=== PATIENT | female | born 1975 | race Caucasian/White ===

== ENCOUNTER 2019-01-02 16:24 | Emergency (ER) | payer MEDICAID ==
[~2019-01-02] VITALS: Ht 162.6 cm; Wt 72.6 kg
--- NOTE | 2019-01-02 16:30 | NUR ---
Pt came into ED for chest pain x2 hrs. She stated she was also feeling palpitations. States her pain is 6/10. patient states she had N/V/D for 2 hrs. Pt is A&Ox4. She states she has had a hx of chest pain but the results were inconclusive. Will continue to monitor. Addendum: 01/02/19 at 1643 by [facility] PT also has SOB.
--- NOTE | 2019-01-02 16:31 | NUR ---
Patient to ER bed 06 to gown for evaluation. Side rails up.
[2019-01-02 16:32] VITALS: BP_SYST 147
--- NOTE | 2019-01-02 16:45 | NUR ---
ER Dr. Smith at bedside examining patient.
[2019-01-02] MEDS ORDERED: ASPIRIN 81 MG TAB.CHEW PO ONE (17:00)
[2019-01-02 17:03] LABS: HEMATOCRIT 33.4 % (36-48); PLATELET COUNT (AUTO) 290 K/uL (130-430)
[2019-01-02 17:08] LABS: CALCIUM 8.8 mg/dL (8.4-11.0); CREATININE 0.7 mg/dL (0.55-1.30); HEMOGLOBIN 10.7 g/dL (12.0-16.0); MEAN CORPUSCULAR HEMOGLOBIN 25 pg (27-31); MEAN CORPUSCULAR HGB CONC 32 % (32-36); MEAN CORPUSCULAR VOLUME 77 fL (79.0-98.0); POTASSIUM 3.7 mmol/L (3.5-5.1); RED BLOOD CELL COUNT(AUTO) 4.35 MIL/uL (4.2-6.2); RED CELL DISTRIBUTION WIDTH 28.8 % (9.0-15.0)
[2019-01-02 17:12] LABS: PROTHROMBIN TIME 10.2 SECS (9.5-12.5)
[2019-01-02 17:13] LABS: TOTAL BILIRUBIN 0.5 mg/dL (0.0-1.0)
[2019-01-02 17:32] LABS: ATYPICAL LYMPHOCYTES % 0 % (0-0); BAND % (MANUAL) 2 % (0-6); BASOPHILS % (MANUAL) 0 % (0-2); EOSINOPHILS % (MANUAL) 2 % (0-7); LYMPHOCYTES % (MANUAL) 28 % (20-46); MONOCYTES % (MANUAL) 3 % (0-11)
[2019-01-02 17:38] LABS: CKMB RELATIVE INDEX 0.7 (0.0-2.9); CREATINE KINASE MB 6.3 ng/mL (0-3.6)
--- NOTE | 2019-01-02 18:00 | NUR ---
Patient walked out of ED and followed with charge nurse, VICKIE Menendez. Informed patient that she needs to return to ED to remove IV access. Patient reports that she will be right back. Patient walks to her vehicle a white [employer] plate number [id number] and drives off. PD will be called.
--- NOTE | 2019-01-02 18:04 | NUR ---
[facility] called [phone]. informed Traffic Officer [place] that patient left ED with IV angiocath in her arm. [place] states that they cannot do anything about it. Charge nurse notified.
--- NOTE | 2019-01-02 18:11 | NUR ---
Ana JAMES called at spoke to [place]. They will send officer to home address. Charge nurse and director notified.
--- NOTE | 2019-01-02 18:14 | NUR ---
Person to notify and next of kin contacted. Numbers are disconnected.
--- NOTE | 2019-01-02 18:20 | NUR ---
CALLED PT AT AND LEFT MESSAGE.
--- NOTE | 2019-01-02 18:22 | NUR ---
SPOKE WITH MOTHER ORQUIDEA ARNOLD AT [phone] AND EXPLAINED THAT SHE NEEDS TO RETURN TO ER FOR IV HEPLOCK REMOVAL. MOTHER STATES THAT PT WAS GIVING HER AN ATTITUDE SO SHE DECIDED TO LEAVE, STATES SHE WILL BRING THE PT BACK. STATES THAT SHE THINKS THE PT TOOK IV HEPLOCK OUT ALREADY, TOLD MOTHER WE NEED VERIFICATION. EXPLAINED THAT POLICE HAVE BEEN CALLED
--- NOTE | 2019-01-02 18:42 | NUR ---
Patient returned to ED. IV heplock removed. Bleeding controlled. ID wrist band removed.
== END 2019-01-02 18:00 | disposition left against medical advice (07) ==
LOC: SED 16:24
DX: R07.89 Other chest pain (principal); R03.0 Elevated blood-pressure reading, without diagnosis of hypertension; Z87.891 Personal history of nicotine dependence
CPT/HCPCS: 36415; 71045; 80053; 82550-TC; 82553-TC; 84484; 85007; 85027; 85379; 85610-TC; 85730-TC; 93005; 99284

== ENCOUNTER 2019-03-07 00:56 | Emergency (ER) | payer SELFPAY ==
[~2019-03-07] VITALS: Ht 170.2 cm; Wt 81.6 kg
[2019-03-07 01:00] VITALS: BP_SYST 156
--- NOTE | 2019-03-07 01:05 | NUR ---
Placed in room 8 . Placed on panel monitor, blood pressure machine and pulse oximeter. To gown for exam. Side rails up. Report given to Marge JOHNSTON.
--- NOTE | 2019-03-07 01:06 | NUR ---
12-lead EKG done in bed [address] Bell for interpretation.
--- NOTE | 2019-03-07 01:07 | NUR ---
Pt c/o of midsternal chest pain which started at 2100 while sitting at home. Reports she cannot describe the pain. Reports she drank a lot of alcohol and was brought into thE ED by her mother. Denies drug use. Reports some dysuria. Denies n/v/d or fever. No other complaints/injuries noted. Will cont. to monitor.
--- NOTE | 2019-03-07 01:10 | NUR ---
ER at bedside examining patient.
[2019-03-07] MEDS ORDERED: NACL 0.9% 1,000 ML IV ONE (01:30)
[2019-03-07] MEDS ORDERED: KETOROLAC TROMETHAMINE 30 MG VIAL IVP ONE (01:30)
--- NOTE | 2019-03-07 01:46 | NUR ---
Portable X Ray bedside, well tolerated
[2019-03-07 02:00] LABS: BARBITURATE, URINE NEGATIVE (NEG <=200); BENZODIAZEPINE, URINE POSITIVE (NEG <=150); CANNABINOID, URINE NEGATIVE (NEG <=50); COCAINE, URINE NEGATIVE (NEG <=150); METHAMPHETAMINES SCREEN,URINE NEGATIVE (NEG <=500); OPIATE, URINE NEGATIVE (NEG <=100); PHENCYCLIDINE SCREEN,URINE NEGATIVE (NEG <=25); UR TRICYCLIC ANTIDEPRESSANTS NEGATIVE (NEG <=300); URINE AMPHETAMINE NEGATIVE (NEG <=500); URINE METHADONE NEGATIVE (NEG <=200); URINE OXYCODONE SCREEN NEGATIVE (NEG <=100); URINE PROPOXYPHENE SCREEN NEGATIVE (NEG <=300)
--- NOTE | 2019-03-07 02:00 | NUR ---
PT resting comfortably in bed, no signs of acute distress.
[2019-03-07 02:16] LABS: HEMOGLOBIN 10.3 g/dL (12.0-16.0); MEAN CORPUSCULAR HEMOGLOBIN 26 pg (27-31); WHITE BLOOD COUNT (AUTO) 5.8 K/uL (4.8-10.8)
[2019-03-07 02:29] LABS: HEMATOCRIT 31.7 % (36-48); MEAN CORPUSCULAR HGB CONC 33 % (32-36); MEAN CORPUSCULAR VOLUME 81 fL (79.0-98.0); PLATELET COUNT (AUTO) 253 K/uL (130-430); RED BLOOD CELL COUNT(AUTO) 3.93 MIL/uL (4.2-6.2); RED CELL DISTRIBUTION WIDTH 31.9 % (9.0-15.0)
[2019-03-07 02:34] LABS: CALCIUM 8.8 mg/dL (8.4-11.0); CREATININE 0.75 mg/dL (0.55-1.30); POTASSIUM 3.9 mmol/L (3.5-5.1)
[2019-03-07 02:39] LABS: ALBUMIN 3.6 g/dL (3.4-4.8); TOTAL BILIRUBIN 0.2 mg/dL (0.0-1.0)
--- NOTE | 2019-03-07 03:00 | NUR ---
PT resting comfortably in bed, no signs of acute distress.
--- NOTE | 2019-03-07 04:00 | NUR ---
Pt removed IV. Bleeding controlled. Pt educated to stop, however, pt continued to pull out IV. ER made aware.
--- NOTE | 2019-03-07 04:10 | NUR ---
ER MD Dr. Bell medically cleared pt to go if pt is supervised at has a ride.
[2019-03-07 04:24] VITALS: BP_SYST 112
--- NOTE | 2019-03-07 04:24 | NUR ---
Patient given written and verbal discharge instructions and verbalizes understanding. ER MD Dr. Bell discussed with patient the results and treatment provided. Patient in stable condition. ID arm band removed. Patient educated on pain management and to follow up with PMD. Pain Scale 0/10. Opportunity for questions provided and answered. Medication side effect fact sheet provided.
--- NOTE | 2019-03-07 04:24 | NUR ---
During discharge, pts mother was at bedside reviewing discharge instructions. Pt ambulated with steady gait out of ER in care of mother.
== END 2019-03-07 04:24 | disposition home or self-care (01) ==
LOC: SED 00:56
DX: R07.89 Other chest pain (principal); F10.129 Alcohol abuse with intoxication, unspecified
CPT/HCPCS: 36415; 71045; 80053; 80061; 80307; 81025; 82550; 83880; 84484; 85025; 93005; 96374; 99284; G0482; J1885; J7030

== ENCOUNTER 2024-03-05 19:30 | Inpatient (IN) | payer MEDICAID ==
[~2024-03-05] VITALS: Ht 170.2 cm; Wt 74.1 kg
[2024-03-05 19:35] VITALS: BP_SYST 118; PULSE 89; RESP 16; TEMP 98.1; O2SAT 96
[2024-03-05 20:42] LABS: BASOPHILS # (AUTO) 0.1 K/uL (0.0-0.2); BASOPHILS % (AUTO) 1.1 % (0.0-2.0); EOSINOPHILS # (AUTO) 0.1 K/uL (0.0-0.4); EOSINOPHILS % (AUTO) 1.7 % (0.0-4.0); LYMPHOCYTES % (AUTO) 37.1 % (20.5-51.5); MEAN CORPUSCULAR HEMOGLOBIN 32 pg (27-31); MEAN CORPUSCULAR HGB CONC 33 % (32-36); MEAN CORPUSCULAR VOLUME 95 fL (79.0-98.0); MONOCYTES # (AUTO) 0.5 K/uL (0.0-1.0); MONOCYTES % (AUTO) 8.8 % (1.7-9.3); NEUTROPHILS # (AUTO) 2.8 K/uL (1.8-7.7); NEUTROPHILS % (AUTO) 51.3 % (40.0-70.0); PLATELET COUNT (AUTO) 199 K/uL (130-430); RED BLOOD CELL COUNT(AUTO) 2.42 MIL/uL (4.2-6.2); RED CELL DISTRIBUTION WIDTH 30.9 % (9.0-15.0); WHITE BLOOD COUNT (AUTO) 5.4 K/uL (4.8-10.8)
[2024-03-05 20:43] LABS: HEMOGLOBIN 7.6 g/dL (12.0-16.0)
[2024-03-05 20:54] LABS: ANISOCYTOSIS 2+; OVALOCYTES FEW; TARGET CELLS FEW
[2024-03-05 20:56] LABS: INR 1.1 (0.8-1.2); PROTHROMBIN TIME 12.1 SECS (9.5-12.5)
[2024-03-05 20:59] LABS: ALANINE AMINOTRANSFERASE 47 U/L (12-78); ALBUMIN 1.8 g/dL (3.4-4.8); ALCOHOL, BLOOD 247 mg/dL (<10); ANION GAP 11 (5-15); ASPARTATE AMINOTRANSFERASE 108 U/L (10-37); BILIRUBIN,DIRECT 0.2 mg/dL (0.0-0.3); CALCIUM 7.1 mg/dL (8.4-11.0); CARBON DIOXIDE 26 mmol/L (23-29); CHLORIDE 107 mmol/L (98-107); CREATINE KINASE, TOTAL 68 U/L (26-192); CREATININE 0.74 mg/dL (0.55-1.30); GFR AFRICAN AMERICAN 107 mL/min (>90); GLUCOSE 96 mg/dL (74-106); SODIUM SERUM 144 mmol/L (136-145); TOTAL BILIRUBIN 0.3 mg/dL (0.0-1.0); TOTAL PROTEIN, SERUM 5.7 g/dL (6.4-8.3); UREA NITROGEN, BLOOD 5 mg/dL (8-21)
[2024-03-05 21:00] LABS: GFR NON AFRICAN-AMERICAN 89 mL/min (>90)
[2024-03-05 21:01] LABS: POTASSIUM 2.8 mmol/L (3.5-5.1)
[2024-03-05] MEDS: PANTOPRAZOLE SODIUM 40 MG/VIAL (PROTONIX) IVP ONE (23:37)
[2024-03-05] MEDS: POTASSIUM CHLORIDE 20 MEQ TABLET.ER PO ONE (23:37)
[2024-03-06 01:30] LABS: BILIRUBIN,URINE NEGATIVE (NEGATIVE); BLOOD, URINE NEGATIVE (NEGATIVE); CLARITY/URINE CLEAR (CLEAR); COLOR,URINE YELLOW (YELLOW); GLUCOSE,URINE NEGATIVE (NEGATIVE); KETONES,URINE NEGATIVE (NEGATIVE); LEUKOCYTE ESTERASE ,URINE TRACE (NEGATIVE); NITRITE, URINE NEGATIVE (NEGATIVE); PROTEIN URINE NEGATIVE (NEGATIVE); UROBILINOGEN,URINE 0.2 (0.2-1.0)
[2024-03-06 01:45] LABS: BARBITURATE, URINE NEGATIVE (NEG <=200); BENZODIAZEPINE, URINE NEGATIVE (NEG <=150); CANNABINOID, URINE NEGATIVE (NEG <=50); COCAINE, URINE NEGATIVE (NEG <=150); METHAMPHETAMINES SCREEN,URINE NEGATIVE (NEG <=500); OPIATE, URINE NEGATIVE (NEG <=100); PHENCYCLIDINE SCREEN,URINE NEGATIVE (NEG <=25); URINE AMPHETAMINE NEGATIVE (NEG <=500); URINE METHADONE NEGATIVE (NEG <=200); URINE OXYCODONE SCREEN NEGATIVE (NEG <=100)
[2024-03-06 01:46] LABS: UR TRICYCLIC ANTIDEPRESSANTS NEGATIVE (NEG <=300)
[2024-03-06 01:54] LABS: BACTERIA,URINE RARE /HPF (None Seen); RBC,URINE 0-3 /HPF (0-3)
[2024-03-06] MEDS ORDERED: THIAMINE HCL 200 MG/2 ML VIAL ONE (02:12)
[2024-03-06] MEDS ORDERED: FOLIC ACID 5 MG/ML VIAL IV ONE ×2 (02:12→02:28)
[2024-03-06] MEDS ORDERED: MAGNESIUM SULFATE 1 GM/2 ML VIAL ONE (02:12)
[2024-03-06] MEDS ORDERED: MVI 10 ML VIAL IV ONE (02:12)
[2024-03-06] MEDS: FOLIC ACID 1 MG, THIAMINE HCL 100 MG, MAGNESIUM SULFATE 1 GM, MVI 10 ML in NACL 0.9% 1,... IV ONE (02:34)
[2024-03-06 05:05] VITALS: BP_SYST 118; PULSE 85; RESP 18; TEMP 97.8
[2024-03-06 07:48] VITALS: BP_SYST 131; PULSE 73; RESP 16; TEMP 99; O2SAT 98
[2024-03-06 08:00] VITALS: O2SAT 99
[2024-03-06] MEDS: chlordiazePOXIDE HCL 25 MG CAPSULE PO SCH (08:30)
[2024-03-06] MEDS: PANTOPRAZOLE SODIUM 40 MG/VIAL (PROTONIX) IVP SCH (08:31)
[2024-03-06] MEDS: POTASSIUM CHLORIDE 20 MEQ/PKT PACKET PO SCH (08:31)
[2024-03-06 08:51] LABS: SERUM HCG (QUALITATIVE) NEGATIVE (NEGATIVE)
[2024-03-06 09:01] LABS: EOSINOPHILS # (AUTO) 0.1 K/uL (0.0-0.4); EOSINOPHILS % (AUTO) 1.3 % (0.0-4.0); HEMATOCRIT 23.8 % (36-48); HEMOGLOBIN 7.6 g/dL (12.0-16.0); LYMPHOCYTES # (AUTO) 1.2 K/uL (1.0-5.5); LYMPHOCYTES % (AUTO) 26.7 % (20.5-51.5); MEAN CORPUSCULAR HEMOGLOBIN 31 pg (27-31); MEAN CORPUSCULAR HGB CONC 32 % (32-36); MEAN CORPUSCULAR VOLUME 96 fL (79.0-98.0); MONOCYTES # (AUTO) 0.5 K/uL (0.0-1.0); MONOCYTES % (AUTO) 11.1 % (1.7-9.3); NEUTROPHILS # (AUTO) 2.6 K/uL (1.8-7.7); NEUTROPHILS % (AUTO) 59.9 % (40.0-70.0); PLATELET COUNT (AUTO) 209 K/uL (130-430); RED BLOOD CELL COUNT(AUTO) 2.48 MIL/uL (4.2-6.2); WHITE BLOOD COUNT (AUTO) 4.4 K/uL (4.8-10.8)
[2024-03-06 09:11] LABS: ALBUMIN 1.6 g/dL (3.4-4.8); CALCIUM 7.2 mg/dL (8.4-11.0); CREATININE 0.61 mg/dL (0.55-1.30); POTASSIUM 3.5 mmol/L (3.5-5.1); TOTAL BILIRUBIN 0.5 mg/dL (0.0-1.0); TOTAL PROTEIN, SERUM 5.4 g/dL (6.4-8.3)
[2024-03-06 10:39] LABS: TOTAL IRON BIND. CAPACITY 302 ug/dL (250-450)
[2024-03-06] MEDS ORDERED: NALOXONE HCL 0.4 MG/ML AMP (NARCAN) IVP PRN ×2 (11:00)
[2024-03-06 11:11] VITALS: BP_SYST 117; PULSE 89; RESP 16; TEMP 97; O2SAT 100
[2024-03-06] MEDS: HYDROcodone/ACETAMIN 5-325 MG TAB (NORCO/ VICODIN) PO ONE (11:42)
[2024-03-06] MEDS: SOD FERRIC GLUC COMPLEX/SUC 125 MG in NS 100 ML IV SCH (14:50)
[2024-03-06 15:18] VITALS: BP_SYST 124; PULSE 85; RESP 16; TEMP 97; O2SAT 98
[2024-03-06] MEDS: DIPHENHYDRAMINE HCL 50 MG CAPSULE PO PRN (16:13)
[2024-03-06] MEDS: ALPRAZolam 0.25 MG TABLET PO PRN (16:13)
[2024-03-06] MEDS: BISACODYL 5 MG TABLET.DR (DULCOLAX) PO ONE (17:57)
[2024-03-06] MEDS: HYDROcodone/ACETAMIN 5-325 MG TAB (NORCO/ VICODIN) PO PRN (17:58)
[2024-03-06] MEDS: GOLYTELY / COLYTE SOLUTION 4 LITERS PO ONE (17:58)
[2024-03-06 20:08] VITALS: BP_SYST 134; PULSE 85; RESP 16; TEMP 97.8; O2SAT 100
[2024-03-06] MEDS: CLOTRIMAZOLE/BETAMET DIPROP 15 GM TUBE TP SCH (21:36)
[2024-03-06] MEDS: MULTIVITAMINS TAB 1 TABLET PO SCH (21:42)
[2024-03-07 00:24] VITALS: BP_SYST 114; PULSE 78; RESP 15; TEMP 96.8; O2SAT 95
[2024-03-07 04:00] VITALS: BP_SYST 114; PULSE 80; RESP 16; TEMP 97.7; O2SAT 99
[2024-03-07] MEDS: MIDAZOLAM HCL 5 MG/5 ML VIAL ONE (07:25)
[2024-03-07] MEDS: fentaNYL CITRATE/PF 100 MCG/2 ML AMP ONE (07:25)
[2024-03-07 07:29] LABS: EOSINOPHILS # (AUTO) 0.1 K/uL (0.0-0.4); EOSINOPHILS % (AUTO) 2.2 % (0.0-4.0); HEMATOCRIT 23.8 % (36-48); HEMOGLOBIN 7.6 g/dL (12.0-16.0); LYMPHOCYTES # (AUTO) 0.9 K/uL (1.0-5.5); LYMPHOCYTES % (AUTO) 24.3 % (20.5-51.5); MEAN CORPUSCULAR HEMOGLOBIN 31 pg (27-31); MEAN CORPUSCULAR HGB CONC 32 % (32-36); MEAN CORPUSCULAR VOLUME 98 fL (79.0-98.0); MONOCYTES # (AUTO) 0.5 K/uL (0.0-1.0); MONOCYTES % (AUTO) 12.6 % (1.7-9.3); NEUTROPHILS # (AUTO) 2.3 K/uL (1.8-7.7); NEUTROPHILS % (AUTO) 59.9 % (40.0-70.0); PLATELET COUNT (AUTO) 193 K/uL (130-430); RED BLOOD CELL COUNT(AUTO) 2.43 MIL/uL (4.2-6.2); RETICULOCYTE COUNT 3.8 % (0.5-1.5); WHITE BLOOD COUNT (AUTO) 3.8 K/uL (4.8-10.8)
[2024-03-07 07:51] LABS: INR 1.1 (0.8-1.2); PROTHROMBIN TIME 12.1 SECS (9.5-12.5)
[2024-03-07 08:02] LABS: ALBUMIN 1.5 g/dL (3.4-4.8); BILIRUBIN,DIRECT 0.2 mg/dL (0.0-0.3); CALCIUM 7.5 mg/dL (8.4-11.0); CREATININE 0.7 mg/dL (0.55-1.30); POTASSIUM 3.2 mmol/L (3.5-5.1); TOTAL BILIRUBIN 0.4 mg/dL (0.0-1.0); TOTAL PROTEIN, SERUM 5.2 g/dL (6.4-8.3)
[2024-03-07 08:04] LABS: RED CELL DISTRIBUTION WIDTH 30.9 % (9.0-15.0)
[2024-03-07 08:10] VITALS: BP_SYST 115; PULSE 77; RESP 18; TEMP 97.3; O2SAT 91
[2024-03-07 11:57] VITALS: BP_SYST 103; PULSE 88; RESP 18; TEMP 97.8; O2SAT 95
[2024-03-07] MEDS: BISACODYL 5 MG TABLET.DR (DULCOLAX) PO ONE (17:14)
[2024-03-07 17:15] VITALS: BP_SYST 144; PULSE 77; RESP 18; TEMP 98.7; O2SAT 100
[2024-03-07] MEDS: BALSAM PERU/CASTOR OIL 56.7 GM OINT...G. TP SCH (17:27)
[2024-03-07 19:45] VITALS: BP_SYST 97; PULSE 78; RESP 16; TEMP 97.7; O2SAT 100
[2024-03-07] MEDS: GOLYTELY / COLYTE SOLUTION 4 LITERS PO ONE (20:49)
[2024-03-08] VITALS (7 sets, daily range): BP systolic 109–133; PULSE 67–90; RESP 12–22; TEMP 96.7–97.9; O2SAT 98–100
[2024-03-08] MEDS: fentaNYL CITRATE/PF 100 MCG/2 ML AMP ONE (07:01)
[2024-03-08] MEDS: MIDAZOLAM HCL 5 MG/5 ML VIAL ONE (07:01)
[2024-03-08] MEDS: SIMETHICONE 40 MG/0.6 ML ML ONE (07:01)
[2024-03-08 07:13] LABS: BASOPHILS # (AUTO) 0.1 K/uL (0.0-0.2); BASOPHILS % (AUTO) 1.5 % (0.0-2.0); EOSINOPHILS # (AUTO) 0.1 K/uL (0.0-0.4); EOSINOPHILS % (AUTO) 1.7 % (0.0-4.0); HEMATOCRIT 28.5 % (36-48); HEMOGLOBIN 9.1 g/dL (12.0-16.0); LYMPHOCYTES # (AUTO) 1.3 K/uL (1.0-5.5); LYMPHOCYTES % (AUTO) 34.6 % (20.5-51.5); MEAN CORPUSCULAR HEMOGLOBIN 31 pg (27-31); MEAN CORPUSCULAR HGB CONC 32 % (32-36); MEAN CORPUSCULAR VOLUME 98 fL (79.0-98.0); MONOCYTES # (AUTO) 0.5 K/uL (0.0-1.0); MONOCYTES % (AUTO) 14.3 % (1.7-9.3); NEUTROPHILS # (AUTO) 1.8 K/uL (1.8-7.7); NEUTROPHILS % (AUTO) 47.9 % (40.0-70.0); PLATELET COUNT (AUTO) 212 K/uL (130-430); RED BLOOD CELL COUNT(AUTO) 2.92 MIL/uL (4.2-6.2); RED CELL DISTRIBUTION WIDTH 30.1 % (9.0-15.0); WHITE BLOOD COUNT (AUTO) 3.8 K/uL (4.8-10.8)
[2024-03-08 07:53] LABS: INR 1.1 (0.8-1.2); PROTHROMBIN TIME 12.1 SECS (9.5-12.5)
[2024-03-08 08:24] LABS: ALBUMIN 1.8 g/dL (3.4-4.8); CALCIUM 7.8 mg/dL (8.4-11.0); CREATININE 0.59 mg/dL (0.55-1.30); POTASSIUM 3.1 mmol/L (3.5-5.1); TOTAL BILIRUBIN 0.4 mg/dL (0.0-1.0); TOTAL PROTEIN, SERUM 5.9 g/dL (6.4-8.3)
[2024-03-08] MEDS: NEOMY SULF/BACITRAC ZN/POLY 28 GM OINT..GM. TP SCH (13:52)
[2024-03-08] MEDS: HYDROCORTISONE ACETATE 1 SUPP (ANUSOL HC) RC SCH (21:00)
[2024-03-08] MEDS ORDERED: NALOXONE HCL 0.4 MG/ML AMP (NARCAN) IVP PRN (21:45)
[2024-03-08] MEDS: AMOXICILLIN/POTASSIUM CLAV 875 MG TABLET PO SCH (22:30)
[2024-03-08] MEDS: TEMAZEPAM 7.5 MG CAPSULE PO PRN (22:31)
[2024-03-08] MEDS: HYDROcodone/ACETAMIN 10-325 MG TAB PO PRN (22:33)
[2024-03-09] VITALS: BP_SYST 107; PULSE 110; RESP 20; TEMP 97.8; O2SAT 99
[2024-03-09 08:00] VITALS: BP_SYST 121; PULSE 88; RESP 18; TEMP 97.9; O2SAT 99
[2024-03-09 10:11] LABS: BASOPHILS # (AUTO) 0.1 K/uL (0.0-0.2); BASOPHILS % (AUTO) 1.4 % (0.0-2.0); EOSINOPHILS % (AUTO) 1.4 % (0.0-4.0); HEMOGLOBIN 9.3 g/dL (12.0-16.0); LYMPHOCYTES % (AUTO) 27.8 % (20.5-51.5); MEAN CORPUSCULAR HEMOGLOBIN 32 pg (27-31); MEAN CORPUSCULAR HGB CONC 32 % (32-36); MEAN CORPUSCULAR VOLUME 99 fL (79.0-98.0); MONOCYTES # (AUTO) 0.4 K/uL (0.0-1.0); MONOCYTES % (AUTO) 12.4 % (1.7-9.3); PLATELET COUNT (AUTO) 231 K/uL (130-430); RED BLOOD CELL COUNT(AUTO) 2.94 MIL/uL (4.2-6.2); RED CELL DISTRIBUTION WIDTH 30.1 % (9.0-15.0); WHITE BLOOD COUNT (AUTO) 3.5 K/uL (4.8-10.8)
[2024-03-09 10:20] LABS: CALCIUM 7.7 mg/dL (8.4-11.0); CREATININE 0.53 mg/dL (0.55-1.30); POTASSIUM 3.6 mmol/L (3.5-5.1)
[2024-03-09 12:00] VITALS: BP_SYST 113; PULSE 76; RESP 18; TEMP 98; O2SAT 100
[2024-03-09 16:00] VITALS: BP_SYST 123; PULSE 90; RESP 18; TEMP 97.1; O2SAT 99
[2024-03-09 20:10] VITALS: BP_SYST 108; PULSE 87; RESP 17; TEMP 97.8; O2SAT 100
[2024-03-09 22:00] VITALS: O2SAT 100
[2024-03-10 00:10] VITALS: BP_SYST 115; PULSE 78; RESP 18; TEMP 97.5; O2SAT 100
[2024-03-10 07:50] LABS: BASOPHILS % (AUTO) 1.2 % (0.0-2.0); EOSINOPHILS # (AUTO) 0.1 K/uL (0.0-0.4); EOSINOPHILS % (AUTO) 1.8 % (0.0-4.0); HEMATOCRIT 25.5 % (36-48); HEMOGLOBIN 8.1 g/dL (12.0-16.0); LYMPHOCYTES # (AUTO) 1.3 K/uL (1.0-5.5); LYMPHOCYTES % (AUTO) 29.6 % (20.5-51.5); MEAN CORPUSCULAR HEMOGLOBIN 31 pg (27-31); MEAN CORPUSCULAR HGB CONC 32 % (32-36); MEAN CORPUSCULAR VOLUME 99 fL (79.0-98.0); MONOCYTES # (AUTO) 0.8 K/uL (0.0-1.0); MONOCYTES % (AUTO) 18.1 % (1.7-9.3); NEUTROPHILS # (AUTO) 2.1 K/uL (1.8-7.7); NEUTROPHILS % (AUTO) 49.3 % (40.0-70.0); PLATELET COUNT (AUTO) 228 K/uL (130-430); RED BLOOD CELL COUNT(AUTO) 2.58 MIL/uL (4.2-6.2); RED CELL DISTRIBUTION WIDTH 29.5 % (9.0-15.0); WHITE BLOOD COUNT (AUTO) 4.2 K/uL (4.8-10.8)
[2024-03-10 08:00] VITALS: BP_SYST 98; PULSE 85; RESP 18; TEMP 97.3; O2SAT 98
[2024-03-10 08:04] LABS: ALBUMIN 1.5 g/dL (3.4-4.8); CALCIUM 7.3 mg/dL (8.4-11.0); CREATININE 0.44 mg/dL (0.55-1.30); POTASSIUM 3.7 mmol/L (3.5-5.1); TOTAL BILIRUBIN 0.3 mg/dL (0.0-1.0)
[2024-03-10] MEDS: FLUOCINOLONE ACETONIDE TP SCH (09:00)
[2024-03-10 12:00] VITALS: BP_SYST 110; PULSE 68; RESP 18; TEMP 98.6; O2SAT 96
[2024-03-10 16:00] VITALS: BP_SYST 120; PULSE 92; RESP 18; TEMP 97.8; O2SAT 97
[2024-03-10 20:00] VITALS: BP_SYST 135; PULSE 101; RESP 18; TEMP 98.3; O2SAT 95
[2024-03-10 21:50] VITALS: O2SAT 95
[2024-03-11 00:28] VITALS: BP_SYST 164; PULSE 109; RESP 17; TEMP 98.2; O2SAT 98
[2024-03-11 07:50] VITALS: O2SAT 99
[2024-03-11 08:00] VITALS: BP_SYST 116; PULSE 84; RESP 16; TEMP 98.4; O2SAT 99
[2024-03-11] MEDS: chlordiazePOXIDE HCL 25 MG CAPSULE PO SCH ×2 (09:51→16:30)
[2024-03-11 12:00] VITALS: BP_SYST 130; PULSE 67; RESP 17; TEMP 98.9; O2SAT 96
[2024-03-11] MEDS: FLUOCINONIDE 0.05% TOPICAL CREAM 15 GM (LIDEX) TP ONE (14:50)
[2024-03-11 16:00] VITALS: BP_SYST 128; PULSE 76; RESP 18; TEMP 98.7; O2SAT 98
[2024-03-11 20:00] VITALS: BP_SYST 99; PULSE 108; RESP 16; TEMP 98.2; O2SAT 100
[2024-03-11] MEDS: FLUOCINONIDE 0.05% TOPICAL CREAM 15 GM (LIDEX) TP SCH (21:13)
[2024-03-12] VITALS: BP_SYST 115; PULSE 91; RESP 16; TEMP 98.3; O2SAT 100
[2024-03-12 08:02] VITALS: BP_SYST 105; PULSE 82; RESP 18; TEMP 97.2; O2SAT 100
[2024-03-12 08:27] LABS: HEMATOCRIT 31.6 % (36-48); MEAN CORPUSCULAR HEMOGLOBIN 32 pg (27-31); MEAN CORPUSCULAR HGB CONC 32 % (32-36); MEAN CORPUSCULAR VOLUME 100 fL (79.0-98.0); PLATELET COUNT (AUTO) 258 K/uL (130-430); RED BLOOD CELL COUNT(AUTO) 3.16 MIL/uL (4.2-6.2); WHITE BLOOD COUNT (AUTO) 7.2 K/uL (4.8-10.8)
[2024-03-12 08:52] LABS: ALBUMIN 1.9 g/dL (3.4-4.8); CALCIUM 8.5 mg/dL (8.4-11.0); CREATININE 0.61 mg/dL (0.55-1.30); POTASSIUM 4.3 mmol/L (3.5-5.1); TOTAL BILIRUBIN 0.3 mg/dL (0.0-1.0)
[2024-03-12 09:35] LABS: BASOPHILS % (MANUAL) 0 % (0-2); EOSINOPHILS % (MANUAL) 2 % (0-7); LYMPHOCYTES % (MANUAL) 36 % (20-46); MONOCYTES % (MANUAL) 10 % (0-11); PLATELET ESTIMATE ADEQUATE (ADEQUATE)
[2024-03-12 09:36] LABS: ANISOCYTOSIS 2+; OVALOCYTES FEW; TARGET CELLS FEW
[2024-03-12 09:55] VITALS: O2SAT 99
[2024-03-12 12:00] VITALS: BP_SYST 112; PULSE 84; RESP 18; TEMP 97; O2SAT 100
[2024-03-12 16:00] VITALS: BP_SYST 116; PULSE 88; RESP 18; TEMP 96; O2SAT 100
[2024-03-12 20:00] VITALS: BP_SYST 122; PULSE 97; RESP 16; TEMP 97.9; O2SAT 100
[2024-03-13] VITALS (7 sets, daily range): BP systolic 112–122; PULSE 82–97; RESP 16–20; TEMP 97.2–98.4; O2SAT 99–100
[2024-03-13] MEDS ORDERED: MULT400T13 PO (16:40)
[2024-03-13] MEDS ORDERED: CLOT15CR5 TP (16:40)
[2024-03-13] MEDS ORDERED: PRO40 PO (16:40)
[2024-03-13] MEDS ORDERED: CHLO25CA10 PO (16:40)
[2024-03-13] MEDS ORDERED: BEN50 PO (16:40)
[2024-03-13] MEDS ORDERED: Fluocinonide TP (16:40)
[2024-03-13] MEDS ORDERED: ALPR0.255 PO (16:42)
[2024-03-13] MEDS ORDERED: HYDR-3919 PO (16:49)
[2024-03-13] MEDS ORDERED: DOXY100C5 PO (16:51)
[2024-03-14] VITALS: BP_SYST 116; PULSE 92; RESP 16; TEMP 98; O2SAT 98
[2024-03-14 08:00] VITALS: BP_SYST 105; PULSE 81; RESP 16; TEMP 97.9; O2SAT 98
[2024-03-14 08:13] VITALS: O2SAT 98
[2024-03-14 11:10] VITALS: BP_SYST 115; PULSE 75; RESP 16; TEMP 98.3; O2SAT 98
[2024-03-14 12:00] VITALS: BP_SYST 118; PULSE 79; RESP 14; TEMP 98.4; O2SAT 99
[2024-03-14 16:00] VITALS: BP_SYST 112; PULSE 81; RESP 16; TEMP 98.7; O2SAT 99
== END 2024-03-14 16:25 | disposition home or self-care (01) | DRG 253 ==
LOC: SED 19:30 → STU 03-06 00:45 → SMU 03-08 18:20
PROVIDERS: ADMIT Internal Medicine; ATTEND Internal Medicine
PROC: 0DBM8ZZ Excision of Descending Colon, Via Natural or Artificial Opening Endoscopic (ICD-10-PCS; principal; 2024-03-08 14:45)
DX: K62.5 Hemorrhage of anus and rectum (principal); E43 Unspecified severe protein-calorie malnutrition; K63.5 Polyp of colon; E87.6 Hypokalemia; F10.129 Alcohol abuse with intoxication, unspecified; K64.8 Other hemorrhoids; I10 Essential (primary) hypertension; D62 Acute posthemorrhagic anemia; Z59.00 Homelessness unspecified; Z79.899 Other long term (current) drug therapy; Z88.8 Allergy status to other drugs, medicaments and biological substances; Z68.25 Body mass index [BMI] 25.0-25.9, adult; Y90.8 Blood alcohol level of 240 mg/100 ml or more
CPT/HCPCS: 36415; 45385; 71045; 80048; 80053; 80076; 80307; 81000; 81001; 81015; 82272; 82550; 83540; 83550; 83880; 84484; 84702; 84703; 85007; 85025; 85027; 85044; 85610; 85730; 86886; 86900; 86901; 88305; 93005; 97112-GP; 97116-GP; 99285; G0378; G0482; J2250; J2470; J2916; J3010; J3411; J3475; J3490; J7030; Q0163

== ENCOUNTER 2024-03-29 06:46 | Emergency (ER) | payer MEDICAID ==
[~2024-03-29] VITALS: Ht 170.2 cm; Wt 86.2 kg
[2024-03-29 06:46] VITALS: BP_SYST 117; PULSE 63; RESP 17; TEMP 97.3; O2SAT 100
[~2024-03-29 06:46] MED LIST: ALPR0.255 PO; BEN50 PO; CLOT15CR5 TP; DOXY100C5 PO; Fluocinonide TP; HYDR-3919 PO; MULT400T13 PO; PRO40 PO
[2024-03-29 07:25] LABS: EOSINOPHILS # (AUTO) 0.2 K/uL (0.0-0.4); EOSINOPHILS % (AUTO) 3.2 % (0.0-4.0); LYMPHOCYTES # (AUTO) 2.7 K/uL (1.0-5.5)
[2024-03-29 07:31] LABS: BASOPHILS % (AUTO) 0.7 % (0.0-2.0); HEMATOCRIT 32.8 % (36-48); HEMOGLOBIN 10.7 g/dL (12.0-16.0); LYMPHOCYTES % (AUTO) 51.1 % (20.5-51.5); MEAN CORPUSCULAR HEMOGLOBIN 32 pg (27-31); MEAN CORPUSCULAR HGB CONC 33 % (32-36); MEAN CORPUSCULAR VOLUME 98 fL (79.0-98.0); MONOCYTES # (AUTO) 0.3 K/uL (0.0-1.0); MONOCYTES % (AUTO) 5.7 % (1.7-9.3); NEUTROPHILS % (AUTO) 39.3 % (40.0-70.0); PLATELET COUNT (AUTO) 414 K/uL (130-430); RED BLOOD CELL COUNT(AUTO) 3.36 MIL/uL (4.2-6.2); RED CELL DISTRIBUTION WIDTH 21.7 % (9.0-15.0); WHITE BLOOD COUNT (AUTO) 5.2 K/uL (4.8-10.8)
[2024-03-29 07:54] LABS: CALCIUM 7.6 mg/dL (8.4-11.0); CREATININE 0.46 mg/dL (0.55-1.30)
[2024-03-29] MEDS: NACL 0.9% 1,000 ML IV ONE (08:43)
[2024-03-29] MEDS: D10W 500 ML IV STA (11:10)
[2024-03-29] MEDS: POTASSIUM CHLORIDE 20 MEQ TABLET.ER PO ONE (11:11)
[2024-03-29 11:50] VITALS: BP_SYST 117; PULSE 57; RESP 17; TEMP 97.5; O2SAT 97
== END 2024-03-29 11:50 | disposition home or self-care (01) ==
LOC: SED 06:46
DX: G57.83 Other specified mononeuropathies of bilateral lower limbs (principal); R60.0 Localized edema; E87.6 Hypokalemia; E87.0 Hyperosmolality and hypernatremia; R20.0 Anesthesia of skin; I10 Essential (primary) hypertension; Z59.00 Homelessness unspecified; Z79.899 Other long term (current) drug therapy; Z79.2 Long term (current) use of antibiotics
CPT/HCPCS: 99284; 93970; 96360; 80048; 84702; 83880; 85025; 36415; J7030